=== PATIENT | male | born 1970 | race Caucasian/White ===

== ENCOUNTER 2024-03-03 07:46 | Day surgery (SDC) | payer BC, OTHER ==
[~2024-03-03 07:46] MED LIST: HYDROmorphone 0.5 MG/0.5 ML Syringe IVPUSH PRN; Ondansetron 4 MG/2 ML SDV IVPUSH PRN; Sodium Chloride 0.9% 10 ML Syringe FLUSH PRN; Sodium Chloride 0.9% 10 ML Syringe FLUSH SCH; fentaNYL 100 MCG/2 ML SDV IVPUSH PRN
[2024-03-03] MEDS: Lactated Ringers 1,000 ML IV SCH (08:15)
[2024-03-03] MEDS ORDERED: Propofol 200 MG/20 ML SDV ONE ×4 (08:17→10:50)
[2024-03-03] MEDS ORDERED: Ondansetron 4 MG/2 ML SDV ONE ×2 (08:17→08:18)
[2024-03-03] MEDS ORDERED: Midazolam 1 MG/ML 2 ML SDV ONE ×2 (08:18→09:49)
[2024-03-03] MEDS: Pregabalin 25 MG Cap PO SCH (08:40)
[2024-03-03] MEDS: Acetaminophen 325 MG Tab PO SCH (08:40)
[2024-03-03] MEDS: oxyCODONE ER 10 MG TAB.ER PO SCH (08:40)
[2024-03-03] MEDS ORDERED: ceFAZolin 2 GM Vial ONE (09:37)
[2024-03-03] MEDS ORDERED: fentaNYL 100 MCG/2 ML SDV IVPUSH PRN (10:19)
[2024-03-03] MEDS ORDERED: Phenylephrine 1% 10 MG/ML SDV ONE (10:29)
[2024-03-03] MEDS: Morphine 8 MG, EPINEPHrine 0.3 MG, Cefuroxime 750 MG, Ketorolac 30 MG, Sodium Chloride ... PRN (10:52)
[2024-03-03] MEDS: Tranexamic Acid 1,000 MG/10 ML Vial ONE (10:52)
[2024-03-03] MEDS: VANCOmycin 1 GM SDV ONE (10:52)
[2024-03-03] MEDS: HYDROmorphone 0.5 MG/0.5 ML Syringe IVPUSH PRN (11:50)
[2024-03-03] MEDS: oxyCODONE 5 MG Tab PO PRN (12:44)
[2024-03-03] MEDS: Cyclobenzaprine 10 MG Tab PO ONE (15:06)
== END 2024-03-03 15:15 | disposition home or self-care (01) ==
LOC: JD.SDS 07:46
PROVIDERS: ATTEND Orthopaedic Surgery
DX: M16.11 Unilateral primary osteoarthritis, right hip (principal); I10 Essential (primary) hypertension; F51.01 Primary insomnia; F17.290 Nicotine dependence, other tobacco product, uncomplicated
CPT/HCPCS: 0055T; 27130; 36415; 73501; 86850; 86900; 86901; 97116; 97161; A9270; J0171; J0690; J0697; J1171; J1885; J2250; J2272; J2371; J2405; J2704; J7120; J3490